=== PATIENT | female | born 1990 | race Caucasian/White ===

== ENCOUNTER 2017-03-24 14:19 | Emergency (ER) | payer MEDICAID, OTHER ==
[2017-03-24 14:31] VITALS: PULSE 118; RESP 16; O2SAT 96
[2017-03-24 15:16] VITALS: BP 138/96; TEMP 98.7
--- NOTE | 2017-03-24 15:35 | ED PDOC ---
HPI: Psych/Substance Abuse Time Seen by Provider: 03/24/17 14:30 Chief Complaint (Nursing): Psychiatric Evaluation Chief Complaint (Provider): Psychiatric Evaluation History Per: Patient History/Exam Limitations: no limitations Onset/Duration Of Symptoms: Mins (prior to arrival) Current Symptoms Are (Timing): Gone Now Modifying Factor(s): None (patient denies) Associated Symptoms: denies: Suicidal Thoughts (no homicidal ideation), Suicidal Plan Additional Complaint(s): 26 year old female with no pertinent medical history is brought into the ED by EMS for a psychiatric evaluation after being picked up by the police for " acting bazaar" just prior to arrival. She denies any drug use and denies having any medical complaints, suicidal ideation, homicidal ideation, and hallucinations. PMD: not provided. Past Medical History Reviewed: Historical Data, Nursing Documentation, Vital Signs Vital Signs: Last Vital Signs Temp 98.7 F 03/24/17 15:16 Pulse 118 H 03/24/17 14:28 Resp 16 03/24/17 14:28 BP 138/96 H 03/24/17 15:16 Pulse Ox 96 03/24/17 14:28 - Medical History PMH: No Chronic Diseases Denies: Diabetes, Hepatitis, HIV, HTN, Seizures, Sexually Transmitted Disease - Family History Family History: States: Unknown Family Hx - Social History Current smoker - smoking cessation education provided: No Alcohol: None Drugs: Denies - Immunization History Hx Tetanus Toxoid Vaccination: (UTD) - Home Medications Home Medications: Ambulatory Orders Medication Instructions Recorded Alprazolam [Xanax] 0.5 mg PO HS #5 tab 09/08/16 - Allergies Allergies/Adverse Reactions: Allergies Allergy/AdvReac Type Severity Reaction Status Date / Time No Known Allergies Allergy Verified 09/22/14 16:46 Review of Systems ROS Statement: Except As Marked, All Systems Reviewed And Found Negative Psych: Negative for: Suicidal ideation (no homicidal ideation), Other (no hallucinations) Physical Exam - Reviewed Nursing Documentation Reviewed: Yes Vital Signs Reviewed: Yes - Physical Exam Appears: Positive for: Well, Non-toxic, No Acute Distress (calm, cooperative ) Head Exam: Positive for: ATRAUMATIC, NORMOCEPHALIC Skin: Positive for: Normal Color, Warm, Dry Eye Exam: Positive for: Normal appearance ENT: Positive for: Normal ENT Inspection Neck: Positive for: Normal Cardiovascular/Chest: Positive for: Regular Rate, Rhythm Respiratory: Positive for: Normal Breath Sounds. Negative for: Respiratory Distress Gastrointestinal/Abdominal: Positive for: Normal Exam, Soft. Negative for: Tenderness Back: Positive for: Normal Inspection. Negative for: Vertebral Tenderness Extremity: Positive for: Normal ROM. Negative for: Tenderness, Deformity, Swelling Neurologic/Psych: Positive for: Alert, Oriented (3x), Gait (steady). Negative for: Aphasia, Facial Droop - ECG O2 Sat by Pulse Oximetry: 96 (RA) Pulse Ox Interpretation: Normal - Progress ED Course And Treament: Repea temp: 98.7, BP: 138/96. Medical Decision Making Medical Decision Makin:30 Initial impression: 26 year old female is brought into the ED for a psychiatric evaluation Scribe Attestation: Documented by Guerline Perez, acting as a scribe for Fritz Bullard Provider Scribe Attestation: All medical record entries made by the Scribe were at my direction and personally dictated by me. I have reviewed the chart and agree that the record accurately reflects my personal performance of the history, physical exam, medical decision making, and the department course for this patient. I have also personally directed, reviewed, and agree with the discharge instructions and disposition. Disposition - Clinical Impression Clinical Impression: Normal exam - Patient ED Disposition Is Patient to be Admitted: No - Disposition Referrals: [facility] [place] [Outside] Disposition: Routine/Home Disposition Time: 15:30 Condition: STABLE Instructions: Normal Exam (ED) Forms: [employer] (Japanese)
== END 2017-03-24 15:46 | disposition home or self-care (01) ==
LOC: H.ER 14:19
DX: Z00.00 Encounter for general adult medical examination without abnormal findings (principal)

== ENCOUNTER 2017-04-18 19:39 | Observation (INO) | payer OTHER ==
[2017-04-18 19:44] VITALS: RESP 16; O2SAT 97
[2017-04-18 21:17] LABS: BASO # 0.2 K/uL (0.0-0.2); BASO % 1.1 % (0.0-2.0); EOS # 0.1 K/uL (0.0-0.7); EOS % 0.6 % (0.0-4.0); LYMPH # 1.6 K/uL (1.0-4.3); LYMPH % 11.1 % (20.0-40.0); MEAN CELL VOLUME 92.5 fl (81.0-99.0); MEAN CORPUSCULAR HEMOGLOBIN 30.5 pg (27.0-31.0); MEAN CORPUSCULAR HGB CONC 32.9 g/dL (33.0-37.0); MONO # 0.8 K/uL (0.0-0.8); MONO % 5.6 % (0.0-10.0); NEUT % 81.6 % (50.0-75.0); RED CELL DISTRIBUTION WIDTH 13.9 % (11.5-14.5); WHITE BLOOD COUNT 14.7 K/uL (4.8-10.8)
[2017-04-18 21:34] LABS: ALCOHOL SERUM < 10 mg/dl (0-10); BLOOD UREA NITROGEN 7 mg/dl (7-17); CALCIUM 9.8 mg/dL (8.4-10.2); CARBON DIOXIDE 23 mmol/L (22-30); CHLORIDE 107 mmol/L (98-107); GFR AFRICAN-AMERICAN > 60; GLUCOSE,RANDOM 98 mg/dL (65-105); SODIUM 139 mmol/l (132-148)
--- NOTE | 2017-04-18 22:33 | ED PDOC ---
HPI: Psych/Substance Abuse Time Seen by Provider: 04/18/17 19:53 Chief Complaint (Nursing): Substance Abuse Chief Complaint (Provider): Substance Abuse History Per: Patient History/Exam Limitations: intoxication Onset/Duration Of Symptoms: Days (x 1) Current Symptoms Are (Timing): Still Present Additional Complaint(s): Susana is a 27 y/o female who was brought to the ED by EMS for substance abuse. Patient is a known PCP abuser. Currently denying drug or alcohol use today. No other medical complaints. PMD: Unknown Past Medical History Reviewed: Unable To Obtain Vital Signs: Last Vital Signs Temp 98 F 04/18/17 19:42 Pulse 113 H 04/18/17 19:42 Resp 16 04/18/17 19:42 BP 146/108 H 04/18/17 19:42 Pulse Ox 97 04/18/17 19:42 - Medical History PMH: Denies: Diabetes, Hepatitis, HIV, HTN, Seizures, Sexually Transmitted Disease - Family History Family History: States: Unknown Family Hx - Immunization History Hx Tetanus Toxoid Vaccination: (UTD) - Home Medications Home Medications: Ambulatory Orders Medication Instructions Recorded Alprazolam [Xanax] 0.5 mg PO HS #5 tab 09/08/16 - Allergies Allergies/Adverse Reactions: Allergies Allergy/AdvReac Type Severity Reaction Status Date / Time No Known Allergies Allergy Verified 04/18/17 19:42 Review of Systems Review Of Systems: ROS cannot be obtained secondary to pt's inabilty to answer questions. Physical Exam - Reviewed Nursing Documentation Reviewed: Yes Vital Signs Reviewed: Yes - Physical Exam Appears: Positive for: Well, Non-toxic, No Acute Distress Head Exam: Positive for: ATRAUMATIC, NORMAL INSPECTION, NORMOCEPHALIC Skin: Positive for: Normal Color, Warm, Dry Eye Exam: Positive for: EOMI, Normal appearance, PERRL Neck: Positive for: Normal, Painless ROM, Supple Cardiovascular/Chest: Positive for: Regular Rate, Rhythm. Negative for: Murmur Respiratory: Positive for: Normal Breath Sounds. Negative for: Accessory Muscle Use, Respiratory Distress Gastrointestinal/Abdominal: Positive for: Normal Exam, Soft. Negative for: Tenderness Back: Positive for: Normal Inspection Extremity: Positive for: Normal ROM. Negative for: Pedal Edema, Deformity Neurologic/Psych: Positive for: Alert, Oriented, Mood/Affect (Strange affect. Takes increased time to answer questions) - Laboratory Results Result Diagrams: 04/18/17 21:00 04/18/17 21:00 - ECG O2 Sat by Pulse Oximetry: 97 (RA) Pulse Ox Interpretation: Normal Medical Decision Making Medical Decision Making: Time: 20:20 Impression: PCP Abuse Initial Plan: --BMP --Alcohol serum --Urine drug screen --Salicylate screen --Acetaminophen screen --CBC --Patient admitted to ED-OBS for drug abuse *See ED-OBS tab for further documentation Scribe Attestation: Documented by Tawny Lopes, acting as a scribe for Thmoas Gonzalez MD Provider Scribe Attestation: All medical record entries made by the Scribe were at my direction and personally dictated by me. I have reviewed the chart and agree that the record accurately reflects my personal performance of the history, physical exam, medical decision making, and the department course for this patient. I have also personally directed, reviewed, and agree with the discharge instructions and disposition. ED OBSERVATION Date of observation admission: 04/18/17 Time of observation admission: 20:20 - Observation admission statement Patient is being placed in observation because:: Drug abuse - Goals of Observation Goals of observation are:: Sobriety - Progress Note Progress Note: 04/18/17 Time: 20:20 --Patient is resting. Vital signs stable. Time: 21:50 --Patient still resting. Vital signs stable. Time: 22:29 --Patient is medically stable and cleared for discharge Disposition - Clinical Impression Clinical Impression: Drug abuse - Patient ED Disposition Is Patient to be Admitted: No - Disposition Disposition: Routine/Home Disposition Time: 20:20 Condition: IMPROVED
[2017-04-18 22:38] VITALS: BP 116/87; PULSE 92; TEMP 97.4
== END 2017-04-18 22:59 | disposition home or self-care (01) ==
LOC: H.ER 19:39 → H.EROBSV 20:20
PROVIDERS: ADMIT Emergency Medicine; ATTEND Emergency Medicine
DX: F16.10 Hallucinogen abuse, uncomplicated (principal)
CPT/HCPCS: 36415; 80048; 80320; 80329; 82948; 85025; 99283; G0378

== ENCOUNTER 2017-05-14 00:41 | Observation (INO) | payer OTHER ==
[2017-05-14 00:46] VITALS: RESP 16; O2SAT 98
--- NOTE | 2017-05-14 01:20 | ED PDOC ---
HPI: Psych/Substance Abuse Time Seen by Provider: 05/14/17 00:58 Chief Complaint (Nursing): Substance Abuse Chief Complaint (Provider): Substance abuse History Per: Patient History/Exam Limitations: intoxication Onset/Duration Of Symptoms: Hrs Current Symptoms Are (Timing): Still Present Suicide/Self Injury Attempted (Context): None Modifying Factor(s): Alcohol Severity: Moderate Involuntary Hold By: None Additional Complaint(s): 27 y/o female, hx of drug abuse, comes in for possible drug or alcohol abuse tonight. Patient is currently under the influence and cannot participate in giving history. Past Medical History Reviewed: Historical Data, Nursing Documentation, Vital Signs Vital Signs: Last Vital Signs Temp 101.1 F H 05/14/17 00:43 Pulse 121 H 05/14/17 00:43 Resp 16 05/14/17 00:43 BP 158/78 H 05/14/17 00:43 Pulse Ox 98 05/14/17 00:43 - Medical History PMH: Denies: Diabetes, Hepatitis, HIV, HTN, Seizures, Sexually Transmitted Disease - Family History Family History: States: Unknown Family Hx - Immunization History Hx Tetanus Toxoid Vaccination: (UTD) - Home Medications Home Medications: Ambulatory Orders Medication Instructions Recorded Alprazolam [Xanax] 0.5 mg PO HS #5 tab 09/08/16 - Allergies Allergies/Adverse Reactions: Allergies Allergy/AdvReac Type Severity Reaction Status Date / Time No Known Allergies Allergy Verified 04/18/17 19:42 Review of Systems Review Of Systems: ROS cannot be obtained secondary to pt's inabilty to answer questions. Physical Exam - Reviewed Nursing Documentation Reviewed: Yes Vital Signs Reviewed: Yes - Physical Exam Appears: Positive for: Non-toxic, No Acute Distress Skin: Positive for: Warm, Dry Cardiovascular/Chest: Positive for: Regular Rate, Rhythm Respiratory: Positive for: Normal Breath Sounds. Negative for: Rales, Rhonchi, Wheezing Gastrointestinal/Abdominal: Positive for: Soft. Negative for: Tenderness Back: Positive for: Normal Inspection. Negative for: L CVA Tenderness, R CVA Tenderness Extremity: Positive for: Other (Abrasion to the left arm) Neurologic/Psych: Positive for: Alert, Other (Keeps repeating the word "wisdom") . Negative for: Oriented - Laboratory Results Result Diagrams: 05/14/17 02:10 05/14/17 02:10 - ECG O2 Sat by Pulse Oximetry: 98 (RA) Pulse Ox Interpretation: Normal Medical Decision Making Medical Decision Making: Initial impression: * Possible drug or alcohol abuse tonight. Initial plan: * Blood labs * Ativan * UA * ED Obs, 1:1 Final impression: * Drug abuse Scribe Attestation: Documented by Greg Meeks, acting as a scribe for Lisa Guzman MD. Provider Scribe Attestation: All medical record entries made by the Scribe were at my direction and personally dictated by me. I have reviewed the chart and agree that the record accurately reflects my personal performance of the history, physical exam, medical decision making, and the department course for this patient. I have also personally directed, reviewed, and agree with the discharge instructions and disposition. ED OBSERVATION Date of observation admission: 05/14/17 Time of observation admission: 01:28 - Observation admission statement Patient is being placed in observation because:: Alcohol and/or drug intoxication - Goals of Observation Goals of observation are:: Sobriety - Progress Note Progress Note: 05/14/17 02:58 Vitals signs are stable 05/14/17 03:27 Patient is awake with stable vital signs. Ordering Geodon to calm patient. 05/14/17 05:00 Vital signs stable. No change. 05/14/17 06:25 Vital signs stable. No change. 05/14/17 06:49 Pt. is now awake and alert, A&O x 3, steady gait, will d/c home. 05/14/17 06:50 Disposition - Clinical Impression Clinical Impression: Drug abuse, Alcohol abuse - Disposition Disposition: Routine/Home Disposition Time: 06:51 Condition: STABLE
[2017-05-14 02:47] LABS: BASO # 0.1 K/uL (0.0-0.2); BASO % 0.5 % (0.0-2.0); EOS % 0.3 % (0.0-4.0); HEMATOCRIT 44.3 % (34.0-47.0); LYMPH % 14.2 % (20.0-40.0); MEAN CELL VOLUME 93.3 fl (81.0-99.0); MEAN CORPUSCULAR HEMOGLOBIN 31.3 pg (27.0-31.0); MEAN CORPUSCULAR HGB CONC 33.5 g/dL (33.0-37.0); MEAN PLATELET VOLUME 8.1 fl (7.2-11.7); MONO # 0.7 K/uL (0.0-0.8); MONO % 4.8 % (0.0-10.0); NEUT # 11.1 K/uL (1.8-7.0); NEUT % 80.2 % (50.0-75.0); RED CELL DISTRIBUTION WIDTH 13.5 % (11.5-14.5); WHITE BLOOD COUNT 13.8 K/uL (4.8-10.8)
[2017-05-14] MEDS ORDERED: DiphenhydrAMINE 50 mg/ml Inj IM STA (02:58)
[2017-05-14 03:03] LABS: BLOOD UREA NITROGEN 8 mg/dl (7-17); GFR AFRICAN-AMERICAN > 60; GLUCOSE,RANDOM 93 mg/dL (65-105)
[2017-05-14 03:04] LABS: ALCOHOL SERUM 77 mg/dl (0-10); CARBON DIOXIDE 20 mmol/L (22-30); CHLORIDE 109 mmol/L (98-107); POTASSIUM 3.6 MMOL/L (3.6-5.0); SODIUM 144 mmol/l (132-148)
[2017-05-14] MEDS ORDERED: Sterile Water 10 ML IV ONE (03:34)
[2017-05-14] MEDS ORDERED: Midazolam 2 MG/2 ML VIAL ONE (05:12)
[2017-05-14 06:38] VITALS: BP 158/89; PULSE 88; TEMP 98.9
== END 2017-05-14 06:52 | disposition home or self-care (01) ==
LOC: H.ER 00:41 → H.EROBSV 00:59
PROVIDERS: ADMIT Emergency Medicine; ATTEND Emergency Medicine
DX: F10.10 Alcohol abuse, uncomplicated (principal); F19.10 Other psychoactive substance abuse, uncomplicated
CPT/HCPCS: 36415; 80048; 80320; 80329; 85025; 96372; 99285; G0378; J1200; J1630; J2060; J3486

== ENCOUNTER 2017-11-22 23:12 | Emergency (ER) | payer OTHER ==
[2017-11-22 23:23] VITALS: BP 170/65; PULSE 107; RESP 16; TEMP 97.6; O2SAT 96
[2017-11-22] MEDS ORDERED: Sodium Chloride 0.9% 1,000 ML IV STA (23:33)
--- NOTE | 2017-11-23 00:20 | ED PDOC ---
HPI: Psych/Substance Abuse Time Seen by Provider: 11/22/17 23:25 Chief Complaint (Nursing): Substance Abuse Chief Complaint (Provider): Substance Abuse History Per: EMS History/Exam Limitations: intoxication, other (non-verbal) Onset/Duration Of Symptoms: Hrs (prior to arrival) Current Symptoms Are (Timing): Still Present Additional Complaint(s): Imelda Jeff is a 23 year old female with an unknown medical history, who was brought to the ER by EMS s/p being found intoxicated in a [employer] parking lot by brood station manager prior to arrival. According to EMS and police, patient was found on the ground and unresponsive to questions but was combative and requires restraint. Patient remained non-verbal and history and review of systems were unobtainable as a result. PMD: none provided Past Medical History Reviewed: Historical Data, Nursing Documentation, Vital Signs, Unable To Obtain (patient is non-verbal and is not responding to questions) Vital Signs: Last Vital Signs Temp 97.6 F 11/22/17 23:19 Pulse 107 H 11/22/17 23:19 Resp 16 11/22/17 23:19 BP 170/65 H 11/22/17 23:19 Pulse Ox 96 11/22/17 23:19 - Family History Family History: States: Unknown Family Hx - Allergies Allergies/Adverse Reactions: Allergies Allergy/AdvReac Type Severity Reaction Status Date / Time Unobtainable Allergy Verified 11/22/17 23:22 Review of Systems ROS Statement: Except As Marked, All Systems Reviewed And Found Negative Review Of Systems: ROS cannot be obtained secondary to pt's inabilty to answer questions. (patient is non-verbal) Physical Exam - Reviewed Nursing Documentation Reviewed: Yes Vital Signs Reviewed: Yes - Physical Exam Appears: Negative for: No Acute Distress ((+) acute psychiatric distress) Skin: Positive for: Warm, Dry Eye Exam: Positive for: EOMI, PERRL, Nystagmus (rotatory) ENT: Positive for: Other (tacky mucus membranes) Neck: Positive for: Painless ROM, Supple Cardiovascular/Chest: Positive for: Tachycardia. Negative for: Murmur Respiratory: Positive for: Normal Breath Sounds. Negative for: Wheezing Gastrointestinal/Abdominal: Positive for: Soft. Negative for: Tenderness Back: Positive for: Normal Inspection. Negative for: Muscle Spasm Extremity: Positive for: Normal ROM. Negative for: Deformity Lymphatic: Negative for: Adenopathy Neurologic/Psych: Positive for: Alert, oven heater helper II-XII (intact), Other (non-verbal, occasionally starts to say something but is unable to get initial word out, (+) combative, and uncooperative). Negative for: Motor/Sensory Deficits - Laboratory Results Result Diagrams: 11/22/17 00:50 11/22/17 00:50 - ECG O2 Sat by Pulse Oximetry: 96 (RA) Pulse Ox Interpretation: Normal Medical Decision Making Medical Decision Making: Time: 23:34 Impression: Drug induced psychosis Differentials (including but not limited to): alcohol and drug intoxication, electrolyte abnormality, metabolic encephalopathy, dehydration Plan: --Alcohol Serum --CMP --Drug Screen --HCG Qualitative Serum --Magnesium --Phosphorous --ED Urine --ED Urine Dipstick --Ativan 2 mg IM --IV Fluids Patient uncooperative and unable to understand risk to self. Possible drug intoxication, and patient requires physical restraint and medications for acute drug induced psychosis. 1am Pt fell asleep briefly. Labs obtained demonstrate alcohol and polysubstance abuse. 130am Pt reporting she feels better and wishes to be discharged. Provides correct name and > Previous charts demonstrated multiple visits for substance abuse, including PCP. Resources given for drug addiction treatment. AAOx3. Steady gait. Scribe Attestation: Documented by Myrtle Suh acting as a scribe for Janette Mark MD. Scribe Attestation: All medical record entries made by the Scribe were at my direction and personally dictated by me. I have reviewed the chart and agree that the record accurately reflects my personal performance of the history, physical exam, medical decision making, and the department course for this patient. I have also personally directed, reviewed, and agree with the discharge instructions and disposition. Disposition - Clinical Impression Clinical Impression: Alcohol intoxication, PCP abuse, Marijuana abuse - Disposition Referrals: [facility] [place] [Outside] Disposition: Routine/Home Disposition Time: 01:30 Condition: IMPROVED Instructions: Drug Abuse and Drug Addiction (DC), Alcohol Abuse and Alcoholism (DC) Forms: [employer] (Kyrgyz)
[2017-11-23 01:02] LABS: BASO # 0.1 K/uL (0.0-0.2); BASO % 0.4 % (0.0-2.0); EOS # 0.1 K/uL (0.0-0.7); EOS % 0.5 % (0.0-4.0); HEMOGLOBIN 16.6 g/dL (12.0-16.0); LYMPH # 1.6 K/uL (1.0-4.3); LYMPH % 12.7 % (20.0-40.0); MEAN CORPUSCULAR HEMOGLOBIN 33.3 pg (27.0-31.0); MEAN CORPUSCULAR HGB CONC 34.3 g/dL (33.0-37.0); MEAN PLATELET VOLUME 8.1 fl (7.2-11.7); MONO # 0.8 K/uL (0.0-0.8); MONO % 6.3 % (0.0-10.0); NEUT # 10.1 K/uL (1.8-7.0); NEUT % 80.1 % (50.0-75.0); NRBC % 0.1 % (0.0-0.0); RBC 4.97 Mil/uL (3.80-5.20); RED CELL DISTRIBUTION WIDTH 12.8 % (11.5-14.5); WHITE BLOOD COUNT 12.6 K/uL (4.8-10.8)
[2017-11-23 01:14] LABS: ALB/GLOB RATIO 1.3 (1.0-2.1); ALBUMIN 4.7 g/dL (3.5-5.0); ALT/SGPT 40 U/L (9-52); AST/SGOT 40 U/L (14-36); BLOOD UREA NITROGEN 7 mg/dl (7-17); CALCIUM 9.5 mg/dL (8.4-10.2); GFR AFRICAN-AMERICAN > 60; GFR NON-AFRICAN AMERICAN > 60
[2017-11-23 01:37] LABS: BARBITURATES, UR NEGATIVE (NEGATIVE); BENZODIAZEPINES, UR NEGATIVE (NEGATIVE); OPIATES, UR NEGATIVE (NEGATIVE); PHENCYCLIDINE, UR POSITIVE (NEGATIVE)
== END 2017-11-23 02:30 | disposition home or self-care (01) ==
LOC: MERGE 23:12 → H.ER 23:12
DX: F10.129 Alcohol abuse with intoxication, unspecified (principal); F12.10 Cannabis abuse, uncomplicated; F16.10 Hallucinogen abuse, uncomplicated
CPT/HCPCS: 80053; 80320; 80324; 80345; 80346; 80349; 80353; 80358; 80361; 82948; 83735; 83992; 84100; 85025; 96372; 99285; J2060

== ENCOUNTER 2018-01-21 21:17 | Emergency (ER) | payer MEDICAID, OTHER ==
[2018-01-21 21:23] VITALS: BMI 56.9
[2018-01-21 22:03] LABS: BASO # 0.1 K/uL (0.0-0.2); BASO % 0.7 % (0.0-2.0); EOS % 0.4 % (0.0-4.0); HEMOGLOBIN 15.7 g/dL (12.0-16.0); LYMPH # 1.6 K/uL (1.0-4.3); LYMPH % 21.2 % (20.0-40.0); MEAN CORPUSCULAR HEMOGLOBIN 32.9 pg (27.0-31.0); MEAN PLATELET VOLUME 8.5 fl (7.2-11.7); MONO # 0.4 K/uL (0.0-0.8); MONO % 6.1 % (0.0-10.0); NEUT # 5.3 K/uL (1.8-7.0); NEUT % 71.6 % (50.0-75.0); RBC 4.77 Mil/uL (3.80-5.20); RED CELL DISTRIBUTION WIDTH 12.8 % (11.5-14.5); WHITE BLOOD COUNT 7.3 K/uL (4.8-10.8)
[2018-01-21 22:32] LABS: ALB/GLOB RATIO 1.4 (1.0-2.1); ALBUMIN 4.5 g/dL (3.5-5.0); ALT/SGPT 85 U/L (9-52); AST/SGOT 99 U/L (14-36); BLOOD UREA NITROGEN 6 mg/dl (7-17); CALCIUM 8.7 mg/dL (8.4-10.2); GFR AFRICAN-AMERICAN > 60; GFR NON-AFRICAN AMERICAN > 60; LIPASE 61 U/L (23-300)
[2018-01-21 22:45] LABS: BARBITURATES, UR NEGATIVE (NEGATIVE); BENZODIAZEPINES, UR NEGATIVE (NEGATIVE); OPIATES, UR NEGATIVE (NEGATIVE); PHENCYCLIDINE, UR POSITIVE (NEGATIVE)
--- NOTE | 2018-01-21 22:56 | ED PDOC ---
HPI: Psych/Substance Abuse Time Seen by Provider: 01/21/18 21:22 Chief Complaint (Nursing): Alcohol Ingestion Chief Complaint (Provider): intoxicated, combative ED Caveat: Intoxicated History Per: EMS History/Exam Limitations: intoxication Current Symptoms Are (Timing): Still Present Modifying Factor(s): Alcohol Severity: Severe Associated Symptoms: Agitation, Paranoia Involuntary Hold By: Emergency Physician Additional Complaint(s): 28yo unknown female arrives w police combative, assaulting officers and staff, in handcuffs, per report was intoxicated appearing and approaching strangers with inappropriate behavior on street. Fall noted by police but no other known trauma. Given extreme levels of violent agitation, sexual preoccupation, required immediate bedside assistance of [employer], [facility] security, placed in restraints and relieved of agitation with haldol 5mg and ativan 2mg. Past Medical History Reviewed: Historical Data, Nursing Documentation, Vital Signs, Unable To Obtain - Allergies Allergies/Adverse Reactions: Allergies Allergy/AdvReac Type Severity Reaction Status Date / Time Unobtainable Allergy Verified 01/21/18 21:22 Review of Systems Review Of Systems: ROS cannot be obtained secondary to pt's inabilty to answer questions. Physical Exam - Reviewed Nursing Documentation Reviewed: Yes Vital Signs Reviewed: Yes - Physical Exam Appears: Positive for: In Acute Distress (agitated and combative, foul language) Head Exam: Positive for: NORMAL INSPECTION, NORMOCEPHALIC. Negative for: ATRAUMATIC (facial abrasion) Skin: Positive for: Normal Color, Warm, DRY Eye Exam: Positive for: EOMI, Normal appearance, PERRL ENT: Positive for: Normal ENT Inspection Neck: Positive for: Normal, Painless ROM Cardiovascular/Chest: Positive for: Regular Rate, Rhythm Respiratory: Positive for: CNT, Normal Breath Sounds Gastrointestinal/Abdominal: Positive for: Soft. Negative for: Tenderness, Guarding Back: Positive for: Normal Inspection Extremity: Positive for: Normal ROM, Other (abrasion L knee, scattered abrasions other extremities) Neurologic/Psych: Positive for: Alert, Mood/Affect (agitated +AOB). Negative for: radio repairman II-XII, Facial Droop - Laboratory Results Result Diagrams: 01/21/18 21:57 01/21/18 21:57 - ECG ECG: Positive for: Interpreted By Me ECG Rhythm: Positive for: Sinus Tachycardia, Nonspecific Changes Rate: 104 O2 Sat by Pulse Oximetry: 99 Pulse Ox Interpretation: Normal Medical Decision Making Medical Decision Making: labs, ekg ordered cardiac exercise physiologist maintained approx 1040p required additional dose ativan for agitation and to facilitate imaging etoh elev 394 preg neg Utox +PCP/ THC CT brain FINDINGS: Brain: Minimal atrophy. No intracranial hemorrhage. No mass. No edema. Ventricles: No hydrocephalus. Bones/joints: No calvarial fracture. Soft tissues: Minimal RIGHT frontal soft tissue swelling. Mastoid air cells: No mastoid effusion. IMPRESSION: 1. No intracranial hemorrhage. 2. See facial bone CT report for additional details. Thank you for allowing us to participate in the care of your patient. Dictated and Authenticated by: Brenton Lynch MD 01/21/2018 11:27 PM Eastern Time ([place] & [place]) max/face FINDINGS: Bones/joints: No acute fracture. Chronic deformity floor of LEFT orbit. Soft tissues: Unremarkable. Orbits: Unremarkable as visualized. Sinuses: Scattered minimal mucosal thickening. No air-fluid levels. IMPRESSION: 1. No fracture. 2. Incidental/non-acute findings are described above. Thank you for allowing us to participate in the care of your patient. Dictated and Authenticated by: Brenton Lynch MD 01/21/2018 11:31 PM Eastern Time ([place] & [place]) FINDINGS: Vertebrae: No acute fracture. Discs/spinal canal/neural foramina: No significant spinal canal stenosis. Soft tissues: Unremarkable. Lung apices: Minimal apical scarring/bullous changes. IMPRESSION: 1. No fracture. 2. Incidental/non-acute findings are described above. Thank you for allowing us to participate in the care of your patient. Dictated and Authenticated by: Brenton Lynch MD 01/21/2018 11:34 PM Eastern Time ([place] & [place]) Endorsed Dr Christy Disposition - Clinical Impression Clinical Impression: Alcohol abuse, PCP abuse - Patient ED Disposition Is Patient to be Admitted: Transfer of Care - Disposition Disposition: Transfer of Care Disposition Time: 23:45 Forms: [email or web address] (Moroccan) Patient Signed Over To: Iabn Christy Handoff Comments: pending sobriety
--- NOTE | 2018-01-21 23:27 | CT ---
EXAM: CT Head Without Intravenous Contrast CLINICAL HISTORY: 28 years old, female; Injury or trauma; Fall; Initial encounter; Concussion / head injury; Consciousness not specified; Injury date: 01-21-2018; Additional info: R/O ich head trauma intox TECHNIQUE: Axial computed tomography images of the head/brain without intravenous contrast. All CT scans at this facility use one or more dose reduction techniques, viz.: automated exposure control; ma/kV adjustment per patient size (including targeted exams where dose is matched to indication; i.e. head); or iterative reconstruction technique. Coronal and sagittal reformatted images were created and reviewed. COMPARISON: No relevant prior studies available. FINDINGS: Brain: Minimal atrophy. No intracranial hemorrhage. No mass. No edema. Ventricles: No hydrocephalus. Bones/joints: No calvarial fracture. Soft tissues: Minimal RIGHT frontal soft tissue swelling. Mastoid air cells: No mastoid effusion. IMPRESSION: 1. No intracranial hemorrhage. 2. See facial bone CT report for additional details.
--- NOTE | 2018-01-21 23:32 | CT ---
EXAM: CT Maxillofacial Without Intravenous Contrast CLINICAL HISTORY: 28 years old, female; Injury or trauma; Fall; Initial encounter; Blunt trauma (contusions or hematomas); Max[place]; Additional info: Head facial trauma intox TECHNIQUE: Axial computed tomography images of the face without intravenous contrast. All CT scans at this facility use one or more dose reduction techniques, viz.: automated exposure control; ma/kV adjustment per patient size (including targeted exams where dose is matched to indication; i.e. head); or iterative reconstruction technique. Coronal and sagittal reformatted images were created and reviewed. COMPARISON: No relevant prior studies available. FINDINGS: Bones/joints: No acute fracture. Chronic deformity floor of LEFT orbit. Soft tissues: Unremarkable. Orbits: Unremarkable as visualized. Sinuses: Scattered minimal mucosal thickening. No air-fluid levels. IMPRESSION: 1. No fracture. 2. Incidental/non-acute findings are described above.
[2018-01-21] MEDS ORDERED: Tdap Vaccine 0.5 ml Vial (10-64 yrs) IM ONE (23:33)
--- NOTE | 2018-01-21 23:34 | CT ---
EXAM: CT Cervical Spine Without Intravenous Contrast CLINICAL HISTORY: 28 years old, female; Injury or trauma; Fall; Initial encounter; Blunt trauma; Additional info: Trauma R/O FX TECHNIQUE: Axial computed tomography images of the cervical spine without intravenous contrast. All CT scans at this facility use one or more dose reduction techniques, viz.: automated exposure control; ma/kV adjustment per patient size (including targeted exams where dose is matched to indication; i.e. head); or iterative reconstruction technique. Coronal and sagittal reformatted images were created and reviewed. COMPARISON: No relevant prior studies available. FINDINGS: Vertebrae: No acute fracture. Discs/spinal canal/neural foramina: No significant spinal canal stenosis. Soft tissues: Unremarkable. Lung apices: Minimal apical scarring/bullous changes. IMPRESSION: 1. No fracture. 2. Incidental/non-acute findings are described above.
--- NOTE | 2018-01-22 00:53 | ED PDOC ---
- Laboratory Results Result Diagrams: 01/21/18 21:57 01/21/18 21:57 - ECG O2 Sat by Pulse Oximetry: 99 (RA) Pulse Ox Interpretation: Normal Medical Decision Making Medical Decision Making: Time: 2344 Patient signed out to me by Dr. Rawls pending re-evaluation, clinical sobriety. Progress: 425 Patient awake, alert and oriented x 3 with steady gait. Stable for discharge home. Scribe Attestation: Documented by Esperanza Morgan, acting as a scribe for Iban Christy MD Provider Attestation: All medical record entries made by the Scribe were at my direction and personally dictated by me. I have reviewed the chart and agree that the record accurately reflects my personal performance of the history, physical exam, medical decision making, and the department course for this patient. I have also personally directed, reviewed, and agree with the discharge instructions and disposition. Disposition - Clinical Impression Clinical Impression: Alcohol abuse, PCP abuse - POA Present On Arrival: None - Disposition Disposition: Routine/Home Disposition Time: 04:26 Condition: STABLE Instructions: Alcohol Abuse and Alcoholism (DC) Forms: [employer] ([place])
[2018-01-22 04:18] VITALS: BP 101/64; RESP 23; TEMP 97.6
[2018-01-22 04:25] VITALS: PULSE 98
[2018-01-22 04:27] VITALS: O2SAT 99
--- NOTE | 2018-01-22 09:17 | RAD ---
PROCEDURE: CHEST RADIOGRAPH, 1 VIEW HISTORY: AMS COMPARISON: None available. FINDINGS: LUNGS: No acute pulmonary disease appreciated bilaterally. PLEURA: No pneumothorax or pleural fluid seen. CARDIOVASCULAR: Normal. OSSEOUS STRUCTURES: No significant abnormalities. VISUALIZED UPPER ABDOMEN: Normal. OTHER FINDINGS: None. IMPRESSION: No acute cardiopulmonary disease appreciated.
--- NOTE | 2018-01-22 09:18 | RAD ---
PROCEDURE: Left Knee Radiographs. HISTORY: Pain. COMPARISON: None. FINDINGS: BONES: No interval acute cardiopulmonary disease appreciated. JOINTS: Normal. No osteoarthritis. JOINT EFFUSION: None. OTHER FINDINGS: None. IMPRESSION: Unremarkable radiographs of the left knee.
--- NOTE | 2018-01-22 17:18 | CARD ---
APPROVED REPORT EKG Measurement Heart [id number] <Conclusion> Sinus tachycardia Possible Left atrial enlargement Possible Inferior infarct, age undetermined Abnormal ECG
== END 2018-01-22 04:28 | disposition home or self-care (01) ==
LOC: H.ER 21:17 → MERGE 21:17 → H.ER 01-22 04:28
DX: F10.10 Alcohol abuse, uncomplicated (principal); F16.10 Hallucinogen abuse, uncomplicated; Y90.8 Blood alcohol level of 240 mg/100 ml or more
CPT/HCPCS: 70450; 70486; 71045; 72125; 73562; 80053; 80320; 80324; 80345; 80346; 80349; 80353; 80358; 80361; 81025; 82948; 83690; 83992; 84484; 84703; 85025; 93005; 96372; J1630; J2060

== ENCOUNTER 2018-04-12 17:52 | Emergency (ER) | payer OTHER ==
[2018-04-12 17:53] VITALS: BMI 56.9
[2018-04-12 17:58] VITALS: RESP 16; TEMP 98.9
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
[2018-04-12 18:33] LABS: BASO # 0.1 K/uL (0.0-0.2); BASO % 0.8 % (0.0-2.0); EOS % 0.3 % (0.0-4.0); HEMOGLOBIN 16.2 g/dL (12.0-16.0); LYMPH # 2.4 K/uL (1.0-4.3); LYMPH % 22.8 % (20.0-40.0); MEAN CELL VOLUME 97.8 fl (81.0-99.0); MEAN CORPUSCULAR HEMOGLOBIN 33.3 pg (27.0-31.0); MEAN PLATELET VOLUME 7.1 fl (7.2-11.7); MONO % 9.5 % (0.0-10.0); NEUT # 6.9 K/uL (1.8-7.0); NEUT % 66.6 % (50.0-75.0); RBC 4.86 Mil/uL (3.80-5.20); RED CELL DISTRIBUTION WIDTH 12.9 % (11.5-14.5); WHITE BLOOD COUNT 10.4 K/uL (4.8-10.8)
[2018-04-12 18:51] LABS: ALB/GLOB RATIO 1.6 (1.0-2.1); ALBUMIN 4.8 g/dL (3.5-5.0); ALT/SGPT 52 U/L (9-52); AST/SGOT 59 U/L (14-36); BLOOD UREA NITROGEN 5 mg/dl (7-17); GFR AFRICAN-AMERICAN > 60; GFR NON-AFRICAN AMERICAN > 60
[2018-04-12 19:38] LABS: BARBITURATES, UR NEGATIVE (NEGATIVE); BENZODIAZEPINES, UR NEGATIVE (NEGATIVE)
[2018-04-12 19:44] LABS: OPIATES, UR NEGATIVE (NEGATIVE); PHENCYCLIDINE, UR POSITIVE (NEGATIVE)
--- NOTE | 2018-04-13 00:20 | ED PDOC ---
- Laboratory Results Result Diagrams: 04/12/18 18:29 04/12/18 18:29 - ECG O2 Sat by Pulse Oximetry: 98 (RA) Pulse Ox Interpretation: Normal Medical Decision Making Medical Decision Makin:00 --Care endorsed to me by Dr. Ramos pending [facility] evaluation. 0400 Patient is not accepted by [facility]. Patient is cleared for discharge by Dr Troy. Disposition Doctor Will See Patient In The: Office Counseled Patient/Family Regarding: Studies Performed, Diagnosis, Need For Followup - Clinical Impression Clinical Impression: Alcohol abuse, Marijuana abuse, PCP abuse - POA Present On Arrival: None - Disposition Referrals: [facility] [Outside] Disposition: Routine/Home Disposition Time: 04:32 Condition: GOOD Instructions: Drug Abuse and Drug Addiction (DC), Alcohol Abuse and Alcoholism (DC)
[2018-04-13 04:50] VITALS: BP 132/80; PULSE 70
--- NOTE | 2018-04-13 09:25 | CARD ---
APPROVED REPORT Date of service: 04/12/2018 <Conclusion> Normal sinus rhythm Possible Left atrial enlargement Anterior infarct, age undetermined Abnormal ECG
--- NOTE | 2018-04-13 12:24 | RAD ---
Date of service: 04/12/2018 HISTORY: cough COMPARISON: 01/21/2018 FINDINGS: LUNGS: No active pulmonary disease. PLEURA: No significant pleural effusion identified, no pneumothorax apparent. CARDIOVASCULAR: Normal. OSSEOUS STRUCTURES: No significant abnormalities. VISUALIZED UPPER ABDOMEN: Normal. OTHER FINDINGS: None. IMPRESSION: No active disease.
[2018-04-13 20:47] VITALS: O2SAT 98
== END 2018-04-13 04:44 | disposition home or self-care (01) ==
LOC: H.ER 17:52
DX: F10.10 Alcohol abuse, uncomplicated (principal); F12.10 Cannabis abuse, uncomplicated; Z00.8 Encounter for other general examination; F16.10 Hallucinogen abuse, uncomplicated

== ENCOUNTER 2018-08-03 07:06 | Emergency (ER) | payer OTHER ==
[2018-08-03 07:17] VITALS: BMI 27.4
[2018-08-03 07:33] VITALS: BP 115/84; PULSE 116; TEMP 98; O2SAT 97
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
--- NOTE | 2018-08-03 09:08 | CT ---
Date of service: 08/03/2018 PROCEDURE: CT HEAD WITHOUT CONTRAST. HISTORY: Head injury COMPARISON: None available. TECHNIQUE: Axial computed tomography images were obtained through the head/brain without intravenous contrast. Radiation dose: Total exam DLP = 806.73 mGy-cm. This CT exam was performed using one or more of the following dose reduction techniques: Automated exposure control, adjustment of the mA and/or kV according to patient size, and/or use of iterative reconstruction technique. FINDINGS: HEMORRHAGE: No intracranial hemorrhage. BRAIN: No mass effect or edema. No atrophy or chronic microvascular ischemic changes. VENTRICLES: Unremarkable. No hydrocephalus. CALVARIUM: Unremarkable. PARANASAL SINUSES: Unremarkable as visualized. No significant inflammatory changes. MASTOID AIR CELLS: Unremarkable as visualized. No inflammatory changes. OTHER FINDINGS: None. IMPRESSION: Normal CT of the Head.
--- NOTE | 2018-08-03 09:55 | RAD ---
Date of service: 08/03/2018 PROCEDURE: Radiographs of the left elbow. HISTORY: Injury COMPARISON: No prior. FINDINGS: BONES: Normal. No fracture. JOINTS: Normal. No osteoarthritis. SOFT TISSUES: Olecranon spurring. JOINT EFFUSION: None. OTHER FINDINGS: None IMPRESSION: Olecranon spurring.
== END 2018-08-03 10:05 | disposition home or self-care (01) ==
LOC: H.ER 07:06
DX: M25.522 Pain in left elbow (principal); Y04.2XXA Assault by strike against or bumped into by another person, initial encounter

== ENCOUNTER 2018-10-01 04:24 | Emergency (ER) | payer OTHER ==
[2018-10-01 04:25] VITALS: BMI 27.4
[2018-10-01 04:35] VITALS: TEMP 98.7
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
[2018-10-01 06:03] VITALS: O2SAT 97
[2018-10-01 06:06] LABS: BASO # 0.1 K/uL (0.0-0.2); BASO % 0.7 % (0.0-2.0); EOS % 0.4 % (0.0-4.0); HEMOGLOBIN 15.9 g/dL (12.0-16.0); LYMPH % 32.6 % (20.0-40.0); MEAN CELL VOLUME 97.6 fl (81.0-99.0); MEAN CORPUSCULAR HEMOGLOBIN 33.3 pg (27.0-31.0); MEAN CORPUSCULAR HGB CONC 34.2 g/dL (33.0-37.0); MEAN PLATELET VOLUME 7.4 fl (7.2-11.7); MONO # 0.7 K/uL (0.0-0.8); MONO % 7.9 % (0.0-10.0); NEUT # 5.3 K/uL (1.8-7.0); NEUT % 58.4 % (50.0-75.0); RBC 4.77 Mil/uL (3.80-5.20); RED CELL DISTRIBUTION WIDTH 12.8 % (11.5-14.5); WHITE BLOOD COUNT 9.1 K/uL (4.8-10.8)
[2018-10-01 06:23] LABS: ALB/GLOB RATIO 1.3 (1.0-2.1); ALBUMIN 4.3 g/dL (3.5-5.0); ALT/SGPT 22 U/L (9-52); AST/SGOT 41 U/L (14-36); BLOOD UREA NITROGEN 6 mg/dl (7-17); CALCIUM 8.6 mg/dL (8.4-10.2); GFR NON-AFRICAN AMERICAN > 60; PHENCYCLIDINE, UR NEGATIVE (NEGATIVE)
[2018-10-01 06:36] LABS: BARBITURATES, UR NEGATIVE (NEGATIVE); BENZODIAZEPINES, UR NEGATIVE (NEGATIVE); OPIATES, UR NEGATIVE (NEGATIVE)
--- NOTE | 2018-10-01 07:09 | ED PDOC ---
- Laboratory Results Result Diagrams: 10/01/18 05:55 10/01/18 05:55 Lab Results: Total Bilirubin 0.3 mg/dl (0.2-1.3) 10/01/18 05:55 AST 41 U/L (14-36) H D 10/01/18 05:55 ALT 22 U/L (9-52) 10/01/18 05:55 Alkaline Phosphatase 92 U/L (38-126) 10/01/18 05:55 Total Protein 7.7 G/DL (6.3-8.2) 10/01/18 05:55 Albumin 4.3 g/dL (3.5-5.0) 10/01/18 05:55 Globulin 3.4 gm/dL (2.2-3.9) 10/01/18 05:55 Albumin/Globulin Ratio 1.3 (1.0-2.1) 10/01/18 05:55 - ECG O2 Sat by Pulse Oximetry: 97 - Progress Re-evaluation Time: 11:56 Condition: Re-examined, Improved Medical Decision Making Medical Decision Making: Time: 0700 Patient is endorsed to provider from Thomas Gonzalze MD. Pending sobriety. ------- Scribe Attestation: Documented by Martin Lyman, acting as a scribe for Tab Looney MD. Provider Scribe Attestation: All medical record entries made by the Scribe were at my direction and personally dictated by me. I have reviewed the chart and agree that the record accurately reflects my personal performance of the history, physical exam, medical decision making, and the department course for this patient. I have also personally directed, reviewed, and agree with the discharge instructions and disposition. Disposition Counseled Patient/Family Regarding: Studies Performed, Diagnosis, Need For Followup - Clinical Impression Clinical Impression: Drug abuse, Abrasion of lip, Head injury, Alcohol intoxication - POA Present On Arrival: None - Disposition Referrals: [facility] [Outside] Disposition: Routine/Home Disposition Time: 11:56 Condition: IMPROVED Additional Instructions: NICK HUMPHRIES, thank you for letting us take care of you today. Your provider was Tab Looney MD and you were treated for POSSIBLE SUBSTANCE ABUSE. The emergency medical care you received today was directed at your acute symptoms. If you were prescribed any medication, please fill it and take as d irected. It may take several days for your symptoms to resolve. Return to the Emergency Department if your symptoms worsen, do not improve, or if you have any other problems. Please contact your doctor or call one of the physicians/clinics you have been referred to that are listed on the Patient Visit Information form that is included in your discharge packet. Bring any paperwork you were given at discharge with you along with any medications you are taking to your follow up visit. Our treatment cannot replace ongoing medical care by a primary care provider outside of the emergency department. Thank you [facility] to be part of your care today. If you had an X-Ray or CT scan: A Radiologist will review the ED reading if any change in treatment is needed we will contact you. If you had a blood, urine, or wound culture: It will take several days for the r esults, if any change in treatment is needed we will contact you. If you had an STI test: It will take 48 hours for the results. Please call after 1 week if you have not heard back. Instructions: Closed Head Injury (DC), Alcohol Use - When Is Drinking a Problem?
--- NOTE | 2018-10-01 08:55 | CT ---
Date of service: 10/01/2018 PROCEDURE: CT HEAD WITHOUT CONTRAST. HISTORY: fall COMPARISON: 08/03/2018 TECHNIQUE: Axial computed tomography images were obtained through the head/brain without intravenous contrast. Radiation dose: Total exam DLP = 881.6 mGy-cm. This CT exam was performed using one or more of the following dose reduction techniques: Automated exposure control, adjustment of the mA and/or kV according to patient size, and/or use of iterative reconstruction technique. FINDINGS: HEMORRHAGE: No intracranial hemorrhage. BRAIN: No mass effect or edema. No atrophy or chronic microvascular ischemic changes. VENTRICLES: Unremarkable. No hydrocephalus. CALVARIUM: Unremarkable. PARANASAL SINUSES: Unremarkable as visualized. No significant inflammatory changes. MASTOID AIR CELLS: Unremarkable as visualized. No inflammatory changes. OTHER FINDINGS: None. IMPRESSION: Normal CT of the Head. Concordant results (preliminary interpretation) provided by [employer].
--- NOTE | 2018-10-01 10:14 | CT ---
Date of service: 10/01/2018 PROCEDURE: CT MAXILLOFACIAL BONES WITHOUT CONTRAST HISTORY: fall COMPARISON: None available. TECHNIQUE: Contiguous axial CT images of the maxillofacial bones were obtained. Coronal and sagittal reformats were generated. Radiation dose: Total exam DLP = 711.74 mGy-cm. This CT exam was performed using one or more of the following dose reduction techniques: Automated exposure control, adjustment of the mA and/or kV according to patient size, and/or use of iterative reconstruction technique. FINDINGS: NASAL BONES: Unremarkable. ORBITS: Unremarkable. PARANASAL SINUSES/ MASTOIDS: Clear. MAXILLA: Unremarkable. MANDIBLE/ TEMPOROMANDIBULAR JOINTS: Unremarkable. SKULL BASE: Unremarkable. TEMPORAL BONES: Middle ears and mastoid grossly unremarkable. OTHER FINDINGS: None. IMPRESSION: Unremarkable non contrast enhanced CT of the maxillofacial bones. Concordant results (preliminary interpretation) provided by [employer].
[2018-10-01 14:44] VITALS: BP 124/80; PULSE 92; RESP 18
== END 2018-10-01 13:12 | disposition home or self-care (01) ==
LOC: H.ER 04:24
DX: F10.129 Alcohol abuse with intoxication, unspecified (principal); S09.90XA Unspecified injury of head, initial encounter; S00.511A Abrasion of lip, initial encounter; W19.XXXA Unspecified fall, initial encounter; Y92.89 Other specified places as the place of occurrence of the external cause; F12.90 Cannabis use, unspecified, uncomplicated
CPT/HCPCS: 70450; 70486; 80053; 80320; 80324; 80345; 80346; 80349; 80353; 80358; 80361; 81025; 83992; 85025; 96372; 99284; J2060